=== PATIENT | male | born 1955 | race Caucasian/White ===

== ENCOUNTER → 2017-08-31 | Day surgery (SDC) | payer BC ==
[2017-08-03 07:37] VITALS: Ht 175.3 cm; Wt 83.2 kg
[~2017-08-31] VITALS: Ht 175.3 cm; Wt 83.2 kg
[~2017-08-31] MED LIST: ALPR1TAB3 PO; FEXO1TAB49 PO; VNTHFA/IN INH
== END | disposition home or self-care (01) ==
LOC: C.PAT 11:49 → EDSTATUS 13:00
PROVIDERS: ATTEND Ophthalmology
DX: H25.9 Unspecified age-related cataract (principal); Z53.8 Procedure and treatment not carried out for other reasons; K58.9 Irritable bowel syndrome, unspecified; J30.89 Other allergic rhinitis; K21.0 Gastro-esophageal reflux disease with esophagitis; F41.9 Anxiety disorder, unspecified; M79.7 Fibromyalgia; H10.45 Other chronic allergic conjunctivitis; J45.30 Mild persistent asthma, uncomplicated; R73.01 Impaired fasting glucose; Z79.899 Other long term (current) drug therapy